=== PATIENT | female | born 1960 | race Caucasian/White ===

== ENCOUNTER 2021-03-19 13:22 | Outpatient (REF) | payer BC, MEDICARE, SELFPAY ==
--- NOTE | ~2021-03-19 | XR_ITS ---
EXAMINATION: XR HAND, RIGHT CLINICAL INFORMATION: Pain COMPARISON: None TECHNIQUE: PA, lateral, and oblique views of the right hand. FINDINGS: No acute fracture or dislocation. Joint spaces and articular surfaces are maintained. Small marginal osteophytes present throughout the interphalangeal joints. Moderate marginal osteophytes of the first CMC joint. Soft tissues unremarkable. XR/XR hand RT 2V IMPRESSION: No acute fracture or dislocation.
--- NOTE | ~2021-03-19 | XR_ITS ---
EXAMINATION: XR KNEE, LEFT CLINICAL INFORMATION: Pain COMPARISON: None TECHNIQUE: Three views of the left knee. XR/XR knee LT 3V FINDINGS/IMPRESSION: No acute fracture or dislocation. Moderate tricompartmental marginal osteophytes. Near-complete obliteration of the medial tibiofemoral compartment joint space with associated subchondral sclerosis. Moderate joint effusion.
== END 2021-03-19 13:23 | disposition home or self-care (01) ==
LOC: HO.XRAY 13:22
PROVIDERS: PCP Internal Medicine; Visit Provider Internal Medicine
DX: M17.12 Unilateral primary osteoarthritis, left knee (principal); M45.9 Ankylosing spondylitis of unspecified sites in spine; L40.50 Arthropathic psoriasis, unspecified; M79.641 Pain in right hand; G89.4 Chronic pain syndrome; R73.03 Prediabetes; E78.5 Hyperlipidemia, unspecified; F33.9 Major depressive disorder, recurrent, unspecified; J30.2 Other seasonal allergic rhinitis; Z87.891 Personal history of nicotine dependence; Z80.3 Family history of malignant neoplasm of breast; Z14.8 Genetic carrier of other disease; Z90.5 Acquired absence of kidney; Z88.1 Allergy status to other antibiotic agents; Z88.0 Allergy status to penicillin; Z88.2 Allergy status to sulfonamides; Z88.8 Allergy status to other drugs, medicaments and biological substances; Z91.013 Allergy to seafood; Z79.891 Long term (current) use of opiate analgesic; Z79.52 Long term (current) use of systemic steroids; Z79.899 Other long term (current) drug therapy
CPT/HCPCS: 73120; 73562

== ENCOUNTER → 2021-04-09 08:37 | Outpatient (BNVA) | payer BC, MEDICARE, SELFPAY | PROVIDERS: PCP Internal Medicine; Visit Provider Internal Medicine | DX: M79.641 Pain in right hand (principal); M17.12 Unilateral primary osteoarthritis, left knee; M75.42 Impingement syndrome of left shoulder | CPT/HCPCS: 99212 ==

== ENCOUNTER 2021-05-02 06:49 | Outpatient (REF) | payer BC, MEDICARE, SELFPAY | END 2021-05-02 06:50 | disposition home or self-care (01) | LOC: HO.RADIR 06:49 | PROVIDERS: Visit Provider Internal Medicine | DX: M47.12 Other spondylosis with myelopathy, cervical region (principal) | CPT/HCPCS: 64447; 64450 ==

== ENCOUNTER → 2021-05-07 15:22 | Outpatient (BNVA) | payer BC, MEDICARE, SELFPAY | PROVIDERS: PCP Internal Medicine; Visit Provider Internal Medicine ==

== ENCOUNTER 2021-05-30 09:44 | Outpatient (REF) | payer BC, MEDICARE, SELFPAY | END 2021-05-30 09:45 | disposition home or self-care (01) | LOC: HO.HOSX 09:44 | PROVIDERS: PCP Internal Medicine; Visit Provider Orthopaedic Surgery | DX: Z13.89 Encounter for screening for other disorder (principal) ==

== ENCOUNTER 2021-06-18 11:00 | Outpatient (RCR) | payer BC, MEDICARE, SELFPAY ==
--- NOTE | 2021-06-05 15:17 | MHC.OT.OEV ---
[address] [phone] F: [phone] Occupational Therapy Evaluation Diagnosis: OA Date of Onset: 07/29/18 Attending Provider: Dr Kam Prescribed Treatment: Eval and Treat, ROM, modifications History of Current Condition: Pt w/ complex medical hx, was referred to [facility] w/ B/L hand pain due to OA. She has since been referred to OT for management of pain, edema, activity modification with goal of increasing function, decreasing pain and delaying progression of deformation and pain. Significant Medical History: Pre-diabetic Hx of breast and kidney cancer. 06/29/21 surgery scheduled for breast reconstruction. Patient Goals: Prevent contractures in other fingers, decrease pain. Hand Dominance: Right QuickDASH Score: 83 Prior Level of Function and Occupation Self Care, Employment, Leisure: Worked at [employer] as a [employer] and [employer]. Living Situation, Family and/or Social Support: Lives with in a house. Current Level of Function and Occupation Self Care, Employment, Leisure: Currently unemployed. Difficulty with vacuuming, washing hair, donning socks, pinching, lifting coffee cup, cutting with utensils, grasping and holding. Sleep: Difficulty sleeping due to hand pain and commodities. Driving: Drives predominantly with left hand to avoid pain. Pain Assessment Pain Location and Description: Right hand/thumb Resting Pain 2/10 Pain when Aggravated 10/10 Left hand (minor pain) pain when aggravated 4/10 Aggravating Factors: Gripping, pinching, grasping, holding Alleviating Factors: Consentix, hydrocodone, motrin, nyproin for pain management Trialed heat and cold with some pain relief in the moment. Skin and Soft Tissue Assessment Skin and Soft Tissue: Swelling Comments: Edema dorsal hand, specifically between D2 and D3 MCP. Nerve assessment Ulnar Nerve: WNL Median Nerve: WNL Radial Nerve: WNL Sensory Assessment Temperature: WFL Light Touch: WFL Edema Assessment Upper Extremity: Right Impaired Left Impaired Comments: Figure 8 R 42 cm L 40 cm MCP circ R 20.3 L 18.8 Dexterity Assessment Dexterity: B/L Impaired Comments: Special Tests Comments: Finklestein' Test right hand (+) Grind Test R (+) AROM(PROM) Strength Cervical Cervical Flexion: Cervical Extension: Cervical Lateral Flexion: Cervical Rotation: Comments: WFL Shoulder Flexion: Extension: Abduction: Internal Rotation: External Rotation: Comments: WFL, pt w/ h of left shoulder pain and injections Flexion: Extension: Abduction: Internal Rotation: External Rotation: Comments: Elbow Flexion: Extension: Pronation: Supination: Comments: WFL Flexion: Extension: Pronation: Supination: Comments: Wrist Flexion: Extension: Ulnar Deviation: Radial Deviation: Comments: Decreased end range of right wrist ext Flexion: Extension: Ulnar Deviation: Radial Deviation: Comments: Thumb Thumb CMC Flexion: Thumb MCP Flexion: Thumb IP Flexion: Radial Abduction: Palmar Abduction: Lawrence (Kapandji 0-10): Comments: Malpositioning in thumb CMC with opposition okay sign B/L'ly Digits Index MCP: PIP: DIP: Long MCP: PIP: DIP: Ring MCP: PIP: DIP: Small MCP: PIP: DIP: Comments: Right hand intrinsic tightness, 1-2 cm tip-palm Left D2-D3 DIP extension lag, able to passively and actively bring to full extensive Left D2-D3 mild swan neck (middle > index) Mild ulnar drift at MCPs right hand Right D3 PIP 38 degrees flex contracture D4 PIP 40 degree flex contracture Gross Grasp: R 4 L 42 Lateral Pinch: Two-Point Pinch: Three-Jaw Petros: Comments: Patient Education Primary Language: German It Specialist Required: Yes Current Knowledge: Understands information with skills for self-management Teaching Method: Demonstration Handouts Verbal Education Needs Identified on Evaluation: ADL's Disease Information Equipment Use Exercise Pain Safety How did patient/family demonstrate learning? Patient demonstrates Patient verbalizes Barriers to Learning: None Readiness for Learning: Accepting Who was educated? Patient Comments: Plan of Care Assessment: 60 yo female referred to OT for right hand OA. 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 Currently, pt reports difficulty with ADLs including vacuuming, washing hair, donning socks, pinching, lifting coffee cup, cutting with utensils, grasping and holding. Pt displays edema on dorsal right hand, specifically over D2-D3 MCPS. She also has D3-D4 PIP flexor contractures. Left hand has early signs of swan neck deformities in middle and long fingers w/ actively/passively correctable DIP ext lags. She also has (+) Finklesteins w/ s/s consistent w/ De Quervain's tendinopathy. She will benefit from cont'd therapy services to address pain and edema, with focus on joint protection, activity modification and strengthening of supportive musculature to prevent further deformities. STG Duration: 3 weeks Short Term Goals: Ind with HEP Report pain with light activity <4/10 Report Ind with heat/cold modalities for pain relief Ind with splint wear Demo/verbalize joint protection techniques Right gross grasp >15lb Quickdash Score <60 pts LTG Duration: Assisted Goals: same as above - pt will have brief course of OT prior to breast reconstruction surgery in June. Frequency and Duration: The patient will be seen 2x/wk for 3 weeks Treatment Plan: Therapeutic Exercise Therapeutic Activity Home Exercise Program Splinting Patient Education Edema Control ADL Training Iontophoresis Paraffin Fluidotherapy MHP Cold Packs Joint Mobilization Soft Tissue Mobilization Kinesiotaping Dexamethasone of De Quervains tendinitis Hand based CMC orthosis and/or forearm based thumb spica Electronically Signed By: Alison Arriola OT/s Reviewed/agree with student documentation: Yes Therapist: Janeen Daniels OTR/L CHT Please sign and return to therapist, Thank you for your referral.
--- NOTE | 2021-06-18 11:53 | MHC.OT.DC ---
[address] [phone] F: [phone] Occupational Therapy Discharge Note Provider: Dr Kam Diagnosis: OA Date of Evaluation: 06/05/21 Date of Discharge: 06/18/21 Treatments to Date: 4 Discharge Status: Independent with HEP Patient Elected to Stop Discharge Summary: Vanessa was referred to OT for right hand pain related to arthritis. Pt continues to have moderate-high pain, pt reports she may be having an RA flare-up as she has not been able to take her RA medication due to an upcoming surgery on June 29. Find relief w/ k-tape and orthosis wear, also noted decrease pain and edema w/ compression glove at nighttime. She has good follow through w/ joint protection and HEP. No further OT at this due to upcoming surgery, may return afterwards if desired to continue treatment. Electronically Signed By: Alison Arriola OT/s Reviewed/agree with student documentation: Yes Therapist: Janeen Daniels, OTR/L CHT Please Sign and return to therapist, thank you for your referral.
== END 2021-06-29 08:52 | disposition home or self-care (01) ==
LOC: HO.OT 11:00
PROVIDERS: PCP Internal Medicine; Visit Provider Orthopaedic Surgery
DX: M19.041 Primary osteoarthritis, right hand (principal); M24.541 Contracture, right hand
CPT/HCPCS: 29130; 97033; 97110; 97140; 97166; 97760